=== PATIENT | male | born 1955 | race Caucasian/White ===

== ENCOUNTER 2019-10-01 01:42 | Outpatient (CLI) | payer BC, SELFPAY ==
[2019-10-01 12:58] LABS: ALT 25 U/L (16-63); AST 23 U/L (15-37); Albumin 3.9 g/dL (3.4-5.0); Alkaline Phosphatase 59 U/L (46-116); Anion Gap 9.2 mmol/L (3-11); BUN 20 mg/dL (7-18); Bilirubin, Total 0.5 mg/dL (0.2-1.0); CO2 24.8 mmol/L (21.0-32.0); CREATININE 1.12 mg/dL (0.70-1.30); Calcium 9.3 mg/dL (8.5-10.1); Calculated LDL 87 mg/dL (<100); Chloride 104 mmol/L (98-107); Cholesterol 164 mg/dL (<200); Glucose 102 mg/dL (74-106); HDL Cholesterol 69 mg/dL (40-60); Potassium 4.2 mmol/L (3.5-5.1); Sodium 138 mmol/L (136-145); Total Protein 6.7 g/dL (6.4-8.2); Triglyceride 41 mg/dL (<150)
[2019-10-01 13:08] LABS: HCT 44.9 % (40.0-50.0); HGB 15.5 g/dL (13.5-17.5); MCH 31.8 pg (27.0-33.0); MCHC 34.5 % (32.0-36.0); MCV 92.2 fL (80-95); MPV 9.9 fL (8.0-11.0); Platelet Count 303 10^3/uL (130-400); RBC 4.87 10^6/uL (4.36-5.78); RDW 12.9 % (11.8-14.1); RDW-SD 43.7 fL; WBC 5.81 10^3/uL (4.4-10.8)
== END 2019-10-01 02:02 ==
PROVIDERS: PCP Family Medicine; Visit Provider Family Medicine
DX: I10 Essential (primary) hypertension (principal)
CPT/HCPCS: 36415; 80053; 80061; 85027; 85025

== ENCOUNTER 2020-02-23 21:40 | Outpatient (REF) | payer MEDICARE, BC, SELFPAY ==
[2020-02-23 22:33] LABS: C-Reactive Protein < 0.05 mg/dL (0.0-0.3)
[2020-02-23 22:43] LABS: Abs Immature Grans 0.01 10^3/uL (0.0-0.06); Absolute Basophil Count 0.04 10^3/uL (0.0-0.2); Absolute Eosinophil Count 0.13 10^3/uL (0.0-0.7); Absolute Lymphocyte Count 2.25 10^3/uL (1.2-3.4); Absolute Neutrophil Count 3.12 10^3/uL (1.2-6.7); Basophils % 0.6; HCT 45.1 % (40.0-50.0); HGB 15.6 g/dL (13.5-17.5); Immature Grans % 0.2; Lymphocytes % 34.4; MCH 32.5 pg (27.0-33.0); MCHC 34.6 % (32.0-36.0); MPV 10.8 fL (8.0-11.0); Monocytes % 15.3; Neutrophils % 47.5; Nucleated RBC 0 %; Platelet Count 168 10^3/uL (130-400); RDW 12.1 % (11.8-14.1); RDW-SD 42.2 fL; WBC 6.55 10^3/uL (4.4-10.8)
== END 2020-02-23 22:00 ==
LOC: LBN 21:40
PROVIDERS: PCP Family Medicine; Visit Provider Nurse Practitioner Family
DX: R10.9 Unspecified abdominal pain (principal)
CPT/HCPCS: 85025; 86140

== ENCOUNTER 2020-09-25 02:10 | Outpatient (CLI) | payer MEDICARE, BC, SELFPAY ==
[2020-09-25 13:00] LABS: ALT 23 U/L (16-63); AST 26 U/L (15-37); Albumin 3.8 g/dL (3.4-5.0); Alkaline Phosphatase 53 U/L (46-116); Anion Gap 9.5 mmol/L (3-11); BUN 19 mg/dL (7-18); Bilirubin, Total 0.3 mg/dL (0.2-1.0); CO2 26.5 mmol/L (21.0-32.0); CREATININE 1.1 mg/dL (0.70-1.30); Calcium 8.7 mg/dL (8.5-10.1); Calculated LDL 89 mg/dL (<100); Chloride 105 mmol/L (98-107); Cholesterol 157 mg/dL (<200); Glucose 95 mg/dL (74-106); HDL Cholesterol 59 mg/dL (40-60); Potassium 4.4 mmol/L (3.5-5.1); Sodium 141 mmol/L (136-145); Total Protein 6.4 g/dL (6.4-8.2); Triglyceride 45 mg/dL (<150)
[2020-09-25 16:57] LABS: PSA, Screening 0.9 ng/mL (0.0-4.5)
== END 2020-09-25 02:11 | disposition home or self-care (01) ==
LOC: LOS 02:11
PROVIDERS: PCP Nurse Practitioner Family; Visit Provider Nurse Practitioner Family
DX: I10 Essential (primary) hypertension (principal); Z12.5 Encounter for screening for malignant neoplasm of prostate
CPT/HCPCS: 36415; 80053; 80061; 84153

== ENCOUNTER 2021-02-05 09:14 | Outpatient (CLI) | payer MEDICARE, BC, SELFPAY ==
--- NOTE | 2021-02-05 09:15 | DI.RAD_ITS ---
Exam(s) XR CHEST 2V PA LATERAL EXAM: XR CHEST 2V PA LATERAL CLINICAL HISTORY: chronic cough and one episode now of blood, R05.3. TECHNIQUE: 2D digital imaging was performed. COMPARISON: No exams were available for comparison FINDINGS: Some hyperinflation is noted. Heart size is normal. The mediastinum is not widened. Lungs are clear. No infiltrates nor pleural effusions. IMPRESSION: No acute pulmonary findings. DATA REPOSITORY: RADIATION DOSE DELIVERED:
== END 2021-02-05 09:34 ==
PROVIDERS: PCP Nurse Practitioner Family; Visit Provider Nurse Practitioner Family
DX: R05.3 Chronic cough (principal)
CPT/HCPCS: 71046

== ENCOUNTER 2021-07-30 13:15 | Outpatient (REF) | payer MEDICARE, BC, SELFPAY ==
[2021-08-01 12:42] LABS: COVID-19 RT-PCR UVMMC Result Negative (Negative)
== END 2021-07-30 13:16 | disposition home or self-care (01) ==
LOC: LBN 13:15
PROVIDERS: PCP Nurse Practitioner Family; Visit Provider Physician Assistant
DX: Z20.822 Contact with and (suspected) exposure to COVID-19 (principal)
CPT/HCPCS: U0003

== ENCOUNTER 2022-10-02 02:39 | Outpatient (CLI) | payer MEDICARE, BC, SELFPAY ==
[2022-10-02 12:17] LABS: CREATININE 1.3 mg/dL (0.70-1.30); Estimated GFR 60.21 (mL/min/1.73m2); Potassium 4.3 mmol/L (3.5-5.1)
== END 2022-10-02 02:40 | disposition home or self-care (01) ==
PROVIDERS: PCP Nurse Practitioner Family; Visit Provider Nurse Practitioner Family
DX: I10 Essential (primary) hypertension (principal)
CPT/HCPCS: 36415; 82565; 84132

== ENCOUNTER 2022-11-27 03:39 | Outpatient (CLI) | payer MEDICARE, BC, SELFPAY ==
[2022-11-27 18:19] LABS: PSA, Screening 0.9 ng/mL (<=4.5)
== END 2022-11-27 03:40 | disposition home or self-care (01) ==
LOC: LBO 03:40
PROVIDERS: PCP Nurse Practitioner Family; Visit Provider Nurse Practitioner Family
DX: N40.1 Benign prostatic hyperplasia with lower urinary tract symptoms (principal); Z12.5 Encounter for screening for malignant neoplasm of prostate
CPT/HCPCS: 36415; 84153

== ENCOUNTER 2023-10-28 01:22 | Outpatient (CLI) | payer MEDICARE, BC, SELFPAY ==
--- NOTE | 2023-10-28 07:15 | DI.US_ITS ---
Exam(s) US AAA SCREENING EXAM: US AAA SCREENING CLINICAL HISTORY: screening for aaa,z72.0,tobacco use COMPARISON: No exams were available for comparison FINDINGS: Abdominal Aorta: Proximal: 2.3 x 2.3 cm Mid: 1.9 x 2.1 cm Distal: 1.9 x 2.1 cm Iliac's: Right: 1.4 x 1.3 cm Left: 1.1 x 1.3 cm No significant atherosclerotic disease is seen. IMPRESSION: No evidence of abdominal aortic aneurysm. DATA REPOSITORY:
== END 2023-10-28 01:42 ==
LOC: DI 01:22
PROVIDERS: PCP Nurse Practitioner Family; Visit Provider Nurse Practitioner Family
DX: Z72.0 Tobacco use (principal); Z13.6 Encounter for screening for cardiovascular disorders
CPT/HCPCS: 76706

== ENCOUNTER 2023-10-30 03:28 | Outpatient (CLI) | payer MEDICARE, BC, SELFPAY ==
[2023-10-30 13:19] LABS: CREATININE 1.2 mg/dL (0.70-1.30); Calculated LDL 97 mg/dL (<100); Cholesterol 165 mg/dL (<200); Estimated GFR 65.87 (mL/min/1.73m2); HDL Cholesterol 55 mg/dL (40-60); Potassium 3.8 mmol/L (3.5-5.1); Triglyceride 68 mg/dL (<150)
[2023-10-30 22:41] LABS: PSA, Screening 1.2 ng/mL (<=4.5)
== END 2023-10-30 03:29 | disposition home or self-care (01) ==
LOC: LOS 03:29
PROVIDERS: PCP Nurse Practitioner Family; Visit Provider Nurse Practitioner Family
DX: I10 Essential (primary) hypertension (principal); Z12.5 Encounter for screening for malignant neoplasm of prostate; Z13.6 Encounter for screening for cardiovascular disorders
CPT/HCPCS: 36415; 80061; 84153; 82565; 84132

== ENCOUNTER 2024-11-25 10:44 | Outpatient (CLI) | payer MEDICARE, BC, SELFPAY ==
[2024-11-25 17:11] LABS: Anion Gap 8.2 mmol/L (3-11); BUN 15 mg/dL (7-18); CO2 29.8 mmol/L (21.0-32.0); Calcium 9.6 mg/dL (8.5-10.1); Chloride 101 mmol/L (98-107); Estimated GFR 65.06 (mL/min/1.73m2); Glucose 113 mg/dL (74-106); Potassium 3.6 mmol/L (3.5-5.1); Sodium 139 mmol/L (136-145)
== END 2024-11-25 10:45 | disposition home or self-care (01) ==
LOC: LBO 10:45
PROVIDERS: PCP Nurse Practitioner Family; Visit Provider Nurse Practitioner Family
DX: Z13.1 Encounter for screening for diabetes mellitus (principal)
CPT/HCPCS: 36415; 80048